=== PATIENT | female | born 1955 | race Caucasian/White ===

== ENCOUNTER 2019-08-04 07:31 | Observation (INO) ==
[2019-08-04] MEDS ORDERED: ONDANSETRON 4 MG/2 ML VIAL IV STA (07:58)
[2019-08-04] MEDS ORDERED: HYDROmorphone 2 MG/1 ML VIAL IV STA (07:58)
[2019-08-04] MEDS ORDERED: propofoL 200 MG/20 ML VIAL IV ONE (09:16)
[2019-08-04] MEDS ORDERED: MAGNESIUM HYDROXIDE SUSP 30 ML UDCUP PO PRN (09:21)
[2019-08-04 09:28] LABS: Basophils # 0.1 10*3/uL (0.0-0.2); Basophils % 0.6 % (0.0-0.8); Eosinophils # 0.2 10*3/uL (0.0-0.87); Eosinophils % 1.7 % (0.00-10.9); Hematocrit 35.8 VOL% (35.7-47.0); Hemoglobin 11.2 GM/DL (12.0-16.0); Immature Granulocytes % 0.5 %; Immature Granulocytes Absolute 0.05 #; Lymphocytes # 2.8 10*3/uL (1.4-4.0); Lymphocytes % 27.8 % (21.3-54.2); Mean Corpuscular HGB Conc 31.3 GM/DL (32-36); Mean Corpuscular Volume 84.2 FL (87-102); Mean Platelet Volume 10.1 FL (9.6-12.0); Monocytes % 6.5 % (1.7-12.7); Neutrophils % 62.9 % (38.7-73.9); Platelet Count 293 T/CUMM (130-400); Red Blood Count 4.25 MC/CUMM (3.8-5.5); Red Cell Distribution Width 14.2 % (9.3-17.3)
[2019-08-04 09:43] LABS: Calcium 8.6 MG/DL (8.5-10.1); Osmolality,Calculated 281.4 MOS/KG (273-304)
[2019-08-04] MEDS ORDERED: GLUCAGON 1 MG VIAL IM PRN (12:09)
[2019-08-04] MEDS ORDERED: DEXTROSE 10% 250 ML BAG IV PRN (12:09)
[2019-08-04] MEDS: DEXTROSE 5% NACL 0.45% 1,000 ML IV SCH ×2 (15:14→17:12)
[2019-08-04] MEDS: INSULIN LISPRO 100 UNIT/ML SUBCUT SCH ×2 (17:12→21:27)
[2019-08-04] MEDS: SIMVASTATIN 10 MG TABLET PO SCH (21:24)
[2019-08-04] MEDS: ESCITALOPRAM 10 MG TABLET PO SCH (21:26)
[2019-08-04] MEDS: MORPHINE 4 MG/1 ML VIAL IV PRN (21:27)
[2019-08-05] MEDS: LISINOPRIL/HCTZ 10-12.5 MG TABLET PO SCH ×2 (00:49→21:01)
[2019-08-05] MEDS: MORPHINE 4 MG/1 ML VIAL IV PRN ×3 (00:50→09:18)
[2019-08-05] MEDS: DEXTROSE 5% NACL 0.45% 1,000 ML IV SCH ×5 (01:03→23:14)
[2019-08-05] MEDS ORDERED: CLINDAMYCIN INJ 900 MG in PREMIX 1 EACH IV ONE (06:30)
[2019-08-05] MEDS: INSULIN LISPRO 100 UNIT/ML SUBCUT SCH ×4 (08:15→21:01)
[2019-08-05] MEDS: buPROPion XL 150 MG TABLET PO SCH (08:16)
[2019-08-05] MEDS: PANTOPRAZOLE 40 MG TABLET PO SCH (08:16)
[2019-08-05] MEDS ORDERED: DEXAMETHASONE 4 MG/1 ML VIAL ONE (13:03)
[2019-08-05] MEDS ORDERED: ROPIVACAINE 0.5% 30 ML VIAL ONE (13:03)
[2019-08-05] MEDS ORDERED: BUPIVACAINE 0.5% 50 ML VIAL ONE (13:37)
[2019-08-05] MEDS ORDERED: BACITRACIN OINT 0.9 GM PACK TOP ONE (15:18)
[2019-08-05] MEDS ORDERED: MIDAZOLAM 2 MG/2 ML VIAL ONE (17:06)
[2019-08-05] MEDS ORDERED: SEVOFLURANE 1 UNIT/15 MINUTE INH ONE (17:06)
[2019-08-05] MEDS ORDERED: fentaNYL 100 MCG/2 ML VIAL ONE (17:06)
[2019-08-05] MEDS ORDERED: propofoL 200 MG/20 ML VIAL IV ONE (17:06)
[2019-08-05] MEDS ORDERED: NEOSTIGMINE 10 MG/10 ML VIAL ONE (17:07)
[2019-08-05] MEDS ORDERED: GLYCOPYRROLATE 0.4 MG/2 ML VIAL ONE (17:07)
[2019-08-05] MEDS ORDERED: SUCCINYLCHOLINE 200 MG/10 ML VIAL ONE (17:07)
[2019-08-05] MEDS ORDERED: PHENYLEPHRINE 1 MG/10 ML SYRINGE IV ONE (17:07)
[2019-08-05] MEDS ORDERED: ONDANSETRON 4 MG/2 ML VIAL ONE (17:07)
[2019-08-05] MEDS ORDERED: ROCURONIUM 100 MG/10 ML VIAL IV ONE (17:07)
[2019-08-05] MEDS ORDERED: LACTATED RINGERS 1,000 ML IV ONE (17:07)
[2019-08-05] MEDS ORDERED: ePHEDrine 50 MG/ML AMP ONE (17:07)
[2019-08-05] MEDS ORDERED: diphenhydrAMINE CAP 25 MG CAPSULE PO PRN (20:10)
[2019-08-05] MEDS: SIMVASTATIN 10 MG TABLET PO SCH (21:00)
[2019-08-05] MEDS: ESCITALOPRAM 10 MG TABLET PO SCH (21:01)
[2019-08-06] MEDS: DEXTROSE 5% NACL 0.45% 1,000 ML IV SCH ×2 (03:13→12:46)
[2019-08-06] MEDS: INSULIN LISPRO 100 UNIT/ML SUBCUT SCH ×2 (07:39→12:46)
[2019-08-06] MEDS: PANTOPRAZOLE 40 MG TABLET PO SCH (08:49)
[2019-08-06] MEDS: buPROPion XL 150 MG TABLET PO SCH (08:49)
[2019-08-06 11:59] VITALS: BP 90/56
== END 2019-08-06 13:45 | disposition home or self-care (01) ==
LOC: N.ED 07:31 → N.EDINP 07:31 → N.3E 13:15
PROVIDERS: ADMIT Orthopaedic Surgery; ATTEND Orthopaedic Surgery